=== PATIENT | female | born 1965 | race Caucasian/White ===

== ENCOUNTER 2019-07-24 14:18 | Outpatient (CLI) | payer MEDICARE, MEDICAID, SELFPAY ==
--- NOTE | 2019-07-24 14:33 | CT_ITS ---
WS: [id number] CT CHEST WITHOUT INTRAVENOUS CONTRAST HISTORY: SWELLING AND PAIN ON THE LEFT RIBS TECHNIQUE: Contiguous 5 mm axial imaging performed on the thorax. Coronal and sagittal reformats are submitted. All CT scans at [facility] use at least one of these dose optimization techniq ues: automated exposure control; mA and/or kV adjustment per patient size (includes targeted exams wh ere dose is matched to clinical indication); or iterative reconstruction. CONTRAST: None DLP: 839.39 mGycm COMPARISON: None available. Lungs and central airway: Hyperexpanded lungs with mild haziness and changes of severe chronic emphys trisha. Benign granuloma at the RIGHT lung base. Spiculated nodule in the posterior RIGHT apex measures 2.0 x 1.5 x 1.1 cm. Spiculated nodule with mild tethering towards the pleura. Pleura: Normal. No pleural effusion. Heart and pericardium: Mildly enlarged heart. Calcifications along the coronary arteries. Suspect is a stent in the LEFT anterior descending coronary artery. No pericardial effusion. Mediastinum and valerie: RIGHT paratracheal indeterminate lymph node measuring 1.[address] cm[address]ilum is [address] ill present. There are additional lymph nodes which are slightly enlarged. Vessels: Mild atherosclerosis aorta. No aneurysm. Pulmonary artery size is normal and equal to the ao rta. Chest wall and lower neck: No soft tissue masses. Upper abdomen: Prior cholecystectomy. Bilateral adrenal low-attenuation nodules. Adrenal nodules valeriy ure 1.4 cm in diameter. Nodules are low attenuation suggests an adenoma. Osseous structures: Mild straightening of the normal lumbar lordosis. Nondisplaced rib fractures invo lving the LEFT lateral seventh, eighth and ninth ribs. 1. Spiculated nodule RIGHT apex measures 2.0 x 1.5 x 1.1 cm. Highly suspicious for neoplasm. Recomme nd follow-up PET/CT imaging. 2. Severe chronic emphysema. 3. Mildly enlarged, indeterminate RIGHT paratracheal lymph node measures 1.3 cm. There are addition al smaller lymph nodes in the mediastinum and hilum. 4. Bilateral rounded adrenal masses. Favor a benign adenoma. 5. Nondisplaced LEFT lateral seventh, eighth and ninth rib fractures. 6. Prior cholecystectomy. CT/CT chest wo con [id number] IMPRESSION:
== END 2019-07-24 14:19 | disposition home or self-care (01) ==
LOC: RADWPI 14:27
PROVIDERS: PCP Nurse Practitioner Family; Referring Provider Nurse Practitioner Family; Visit Provider Nurse Practitioner Family
DX: J43.9 Emphysema, unspecified (principal); S22.42XA Multiple fractures of ribs, left side, initial encounter for closed fracture; X58.XXXA Exposure to other specified factors, initial encounter; R07.81 Pleurodynia; E27.9 Disorder of adrenal gland, unspecified; R91.8 Other nonspecific abnormal finding of lung field; Z90.49 Acquired absence of other specified parts of digestive tract
CPT/HCPCS: 71250

== ENCOUNTER → 2019-09-08 18:07 | Outpatient (BNVA) | payer MEDICARE, MEDICAID, SELFPAY | PROVIDERS: PCP Nurse Practitioner Family; Visit Provider Nurse Practitioner Family | DX: M79.672 Pain in left foot (principal) | CPT/HCPCS: 73630 ==

== ENCOUNTER 2019-10-24 10:46 | Outpatient (CLI) | payer MEDICARE, MEDICAID, SELFPAY | END 2019-10-24 10:47 | disposition home or self-care (01) | LOC: LAB 10:50 | PROVIDERS: PCP Nurse Practitioner Family; Visit Provider Internal Medicine Infectious Disease | DX: B39.4 Histoplasmosis capsulati, unspecified (principal) | CPT/HCPCS: 36415 ==

== ENCOUNTER 2021-03-06 17:59 | Emergency (ER) | payer MEDICARE, MEDICAID, SELFPAY ==
[2021-03-06 18:03] VITALS: BP 100/67; PULSE 94; RESP 18; TEMP 36.8; O2SAT 93; BMI 25.1
--- NOTE | 2021-03-06 18:20 | XRR_ITS ---
PROCEDURE INFORMATION: Exam: XR Lumbosacral Spine Exam date and time: 03/06/2021 6:20 PM Age: 55 years old Clinical indication: Injury or trauma; Fall; Blunt trauma (contusions or hematomas); Prior surgery; Surgery date: 6+ months; Surgery type: Back; Additional info: Fall, pain TECHNIQUE: Imaging protocol: XR of the lumbosacral spine. Views: 2 or 3 views. COMPARISON: No relevant prior studies available. FINDINGS: Bones/joints: Spinal alignment is normal. Vertebral body height is maintained. There is moderate lower lumbar degenerative disc disease. There is moderate multilevel facet spondylosis. The visible portion of the pelvis and sacrum is intact. No acute fracture. Visible portions of the ribs are intact. Soft tissues: Unremarkable. Vasculature: There is moderate aortic atherosclerotic disease. XR/XR lumbar spine 2-3V* [id number] IMPRESSION: 1. No acute fracture. 2. Moderate lower lumbar degenerative disc disease.
--- NOTE | 2021-03-06 18:21 | ED_ITS ---
HPI - Fall General: Chief Complaint: Fall Stated Complaint: LOW BACK PAIN S/P FALL Time Seen by Provider: 03/06/21 18:16 History of Present Illness: HPI Narrative: Patient was walking dog and dog pulled her down she landed on the flat of her back. Complains about pain upper lumbar area. History low back surgery. Patient arrived via ambulance. MD complaint: fall Onset (ago): hour(s) Fall from: standing Fall witnessed: no Place fall occurred: home Loss of consciousness: None Symptoms prior to fall: none Context: tripped/slipped Location of injury: back Severity: mild Severity scale (1-10): 4 Quality: aching Associated symptoms-after fall: Reports no associated symptoms; Denies abdominal pain, chest pain or headache(s) Review of Systems Const: Denies: fever(s), chills or body aches Eyes: Denies: change in vision or blurry vision ENMT: Denies: throat pain or nasal congestion Card: Denies: chest pain or dyspnea on exertion Resp: Denies: dyspnea, productive cough or non-productive cough GI: Denies: abdominal pain, nausea or vomiting Musc: Reports: back pain; Denies: extremity pain Skin/Breast: Denies: rash Neuro: Denies: headache(s) Psych: Denies: anxiety or depression Brandon/Lymph: Denies: easy bruising Physical Exam Const: COMMON NORMALS: no acute distress, average body habitus and patient oriented x3 HENMT: COMMON NORMALS: normocephalic HEAD & SCALP: normal to inspection and normocephalic FACE & SINUS: normal facial exam Eye: COMMON NORMALS: conjunctivae normal GENERAL EYE: appearance normal, both eyes and all related structures CONJUNCTIVA: Yes conjunctivae normal Neck/C-Spine: COMMON NORMALS: no JVD Chest: COMMONS NORMALS: normal inspection of the chest Resp: COMMON NORMALS: normal respiratory effort and clear to auscultation bilaterally AUSCULTATION: clear to auscultation bilaterally Cardio: COMMON NORMALS: no JVD, regular rate and regular rhythm RATE: regular rate RHYTHM: regular rhythm GI: COMMON NORMALS: Normal to inspection, nondistended, normoactive bowel sounds present Back/Pelvis: LUMBAR SPINE/LOWER BACK: Yes lumbar spinal tenderness Lumbar spinal tenderness location: L1 and L2 Extremity: COMMON NORMALS: normal to inspection and full ROM Neuro: COMMON NORMALS: patient oriented x3 Course 2 Vital Signs: Vital signs: Vital Signs Temperature 98.3 F 03/06/21 18:03 Pulse Rate 95 03/06/21 18:34 Respiratory Rate 18 03/06/21 18:34 Blood Pressure 102/69 03/06/21 18:34 Pulse Oximetry 92 03/06/21 18:34 MDM - Fall MDM Narrative: Medical decision making narrative: Patient refused Celebrex said she has real pain and that medicine is not real medicine for pain.. Radiology studies were negative. Patient said she cannot sit up due to pain. Pain medicine is off good patient declined. Patient says she has pain medicine at home. Patient set up in bed walked out saying we will give her pain medicine when clearly pain medicine was offered twice. Discharge Plan Discharge Patient Disposition: Home Clinical Impression: Lumbar contusion Qualifiers: Encounter type: initial encounter Qualified Code(s): S30.0XXA - Contusion of lower back and pelvis, initial encounter Condition: Stable Prescriptions: No Action No Known Home Medications RF: 0 Discharge Orders: Discharge ED (Routine); Ordered 03/06/21 Ordered By: Rodrigo Gan Referrals: Kasie Hasasn, BILL PEDDLER [Primary Care Provider] - Discharge Diet: Usual diet Discharge Activity: Increase activity as tolerated Patient Instructions: Contusion in Adults (ED) Activity Restrictions/Additional Instructions: Can take Tylenol or ibuprofen for discomfort. Apply ice to area as needed. Follow-up your family medical provider if no significant provement. Or you can return here. Coding Level of Care Code ED Nitroglycerin Nitrator Operator Batch for Suhail Fwjesus Exam Comprehensive
[2021-03-06 18:34] VITALS: BP 102/69; PULSE 95; RESP 18; O2SAT 92
--- NOTE | 2021-03-06 19:07 | PC.NURSE ---
patient is angry that she has had to wait for her xray. She has refused celebrex stating, that is not a pain medication and I am having real pain. I'm not putting that in my body . she has refused to allow her curtain to be closed to protect the privacy of herself and other patients and only allowed the door to be closed for covid infection control after REPRODUCER stated we would have to call security should she continue to refuse. She has been spewing vitriol concerning staff and [facility] that can be heard in the hallway by passjoseby, including derogatory name calling.
== END 2021-03-06 19:36 | disposition home or self-care (01) ==
PROVIDERS: Emergency Provider Nurse Practitioner Family; PCP Nurse Practitioner Family
DX: S30.0XXA Contusion of lower back and pelvis, initial encounter (principal); W01.0XXA Fall on same level from slipping, tripping and stumbling without subsequent striking against object, initial encounter; Y93.K1 Activity, walking an animal
CPT/HCPCS: 72100; 99282

== ENCOUNTER 2022-01-31 15:23 | Outpatient (CLI) | payer MEDICARE, MEDICAID, SELFPAY ==
--- NOTE | 2022-01-31 16:03 | XRR_ITS ---
PROCEDURE INFORMATION: Exam: XR Chest Exam date and time: 01/31/2022 4:06 PM Age: 56 years old Clinical indication: Shortness of breath; Additional info: SOB TECHNIQUE: Imaging protocol: Radiologic exam of the chest. Views: 2 views. COMPARISON: CT chest con [id number] 07/24/2019 2:38 PM FINDINGS: Lungs: Unremarkable. No consolidation. Pleural spaces: Unremarkable. No pleural effusion. No pneumothorax. Heart/Mediastinum: Unremarkable. No cardiomegaly. Bones/joints: Rotator cuff anchors noted in both humeral heads. Visualized osseous structures are intact. XR/XR chest 2V* [id number] IMPRESSION: No acute findings.
== END 2022-01-31 15:24 | disposition home or self-care (01) ==
LOC: RAD 15:33
PROVIDERS: PCP Family Medicine; Visit Provider Internal Medicine Hematology & Oncology
DX: R06.02 Shortness of breath (principal)
CPT/HCPCS: 71046

== ENCOUNTER 2022-06-20 15:14 | Emergency (ER) | payer MEDICARE, MEDICAID, SELFPAY ==
[2022-06-20 15:17] VITALS: BP 112/70; PULSE 104; RESP 18; TEMP 36.4; O2SAT 99
[2022-06-20 15:38] VITALS: BP 117/80; PULSE 92; RESP 20; O2SAT 94
[2022-06-20 15:51] LABS: Basophils # 0.1 10^3/uL (0.0-0.1); Basophils % 0.5 %; Eosinophils # 0.1 10^3/uL (0.0-0.8); Eosinophils % 0.6 %; Hematocrit 46.9 % (37.0-47.0); Hemoglobin 15.4 g/dL (11.5-15.3); Lymphocytes # 3.7 10^3/uL (0.8-4.8); Lymphocytes % 37.3 %; Mean Corpuscular HGB Conc 32.8 g/dL (30.0-36.0); Mean Corpuscular Hemoglobin 30.8 pg (28.0-34.0); Mean Corpuscular Volume 93.8 fl (81-99); Mean Platelet Volume 11.1 fL (7.4-10.4); Monocytes # 0.3 10^3/uL (0.2-0.9); Monocytes % 3.5 %; Neutrophils # 5.69 10^3/uL (1.8-7.7); Neutrophils % 57.9 %; Nucleated Red Blood Cells % 0 %; Platelet Count 263 10^3/cmm (130-400); White Blood Count 9.8 10^3/uL (4.0-10.0)
--- NOTE | 2022-06-20 15:55 | XRR_ITS ---
PROCEDURE INFORMATION: Exam: XR Chest Exam date and time: 06/20/2022 4:13 PM Age: 56 years old Clinical indication: Cough and dyspnea; Additional info: Dyspnea/cough TECHNIQUE: Imaging protocol: Radiologic exam of the chest. Views: 1 view. COMPARISON: CR XR chest 2V* [id number] 01/31/2022 4:06 PM FINDINGS: Lungs: Unremarkable. No consolidation. Pleural spaces: Unremarkable. No pleural effusion. No pneumothorax. Heart/Mediastinum: Unremarkable. No cardiomegaly. Bones/joints: Rotator cuff repair anchor noted in the right humeral head. Visualized osseous structures are intact. XR/XR chest 1V portable [id number] IMPRESSION: No acute findings.
--- NOTE | 2022-06-20 15:59 | W.ED.GENADLT ---
HPI - General Adult General: Chief complaint: General Medical Stated complaint: high BG Time Seen by Provider: 06/20/22 15:32 Source: patient Mode of arrival: ambulatory History of Present Illness: 56 yo female female presents with complaints of elevated blood sugar. Patient had previously been on metformin and 1 other medication she cannot recall the name of. She lost some weight and had stopped taking it after she had a lung resection for cancerous tumor. Recently her blood sugars have been elevated up into the 500 range. She restarted metformin but her blood sugar continues to be markedly elevated. She is quite anxious about it. She not had any recent fever sweats or chills or illness no flulike symptoms she is not currently on any prednisone. Onset (ago): minute(s) Radiation: non-radiation Relieving factors: none Exacerbating factors: eating Associated symptoms: Deny chest pain, confusion, cough, diaphoresis, decreased appetite, dyspnea, fevers/chills, headache(s), malaise, nausea, rash, palpitations, short of breath, syncope, vomiting or weakness Treatments prior to arrival: none Review of Systems Const: Reports: fatigue; Denies: fever(s), chills, malaise or diaphoresis ENMT: Denies: throat pain, ear or mastoid pain, nasal discharge or nasal congestion Card: Denies: chest pain, palpitations or syncope Resp: Denies: dyspnea GI: Denies: abdominal pain, nausea or vomiting : Denies: flank pain, difficulty voiding, dysuria, urinary frequency or urinary urgency Musc: Denies: neck pain or back pain Skin/Breast: Denies: rash or pruritus Neuro: Denies: headache(s) or confusion [facility] ED PFSH: Medical History (Updated 06/27/22 @ 06:19 by Tony Hewitt DO) Diabetes HTN (hypertension) Physical Exam Const: COMMON NORMALS: no acute distress GENERAL APPEARANCE: cooperative and comfortable ORIENTATION/CONSCIOUSNESS: Yes awake, Yes oriented to person, Yes oriented to place and Yes oriented to time HENMT: COMMON NORMALS: normocephalic, atraumatic, hearing grossly normal bilaterally, external ears normal, EAC's normal, TM's normal bilaterally, Normal nasal mucous membranes and turbinates present, moist oral mucous membranes and oropharynx normal HEAD & SCALP: normocephalic and atraumatic NOSE: Normal nasal mucous membranes and turbinates present EXTERNAL EAR: Yes external ears normal EXTERNAL AUDITORY CANAL: EAC's normal TYMPANIC MEMBRANE: TM's normal bilaterally Eye: COMMON NORMALS: Equal, round and reactive pupils present, EOMs intact bilaterally, conjunctivae normal and no scleral icterus CONJUNCTIVA: Yes conjunctivae normal PUPIL: Yes Equal, round and reactive pupils present Neck/C-Spine: COMMON NORMALS: full ROM, no lymphadenopathy, supple and no JVD Lymph: LYMPHATIC: no lymphadenopathy noted and no lymphedema noted Resp: COMMON NORMALS: normal respiratory effort, No retractions, No use of accessory muscles and clear to auscultation bilaterally AUSCULTATION: clear to auscultation bilaterally Cardio: COMMON NORMALS: no JVD, regular rate, regular rhythm and No murmurs present (Cardio) RATE: regular rate RHYTHM: regular rhythm GI: COMMON NORMALS: Soft to palpation and No hepatosplenomegaly present AUSCULTATION: Yes normoactive bowel sounds PALPATION: Yes Soft to palpation, No Tenderness to palpation present (GI), No Guarding due to palpation present (GI) and Yes No hepatosplenomegaly present Extremity: COMMON NORMALS: normal to inspection, capillary refill normal, no clubbing, cyanosis or edema, no calf tenderness and no pedal edema Neuro: SENSORIUM/ORIENTATION: Yes oriented to person, Yes oriented to place and Yes oriented to time Skin: COMMON NORMALS: no rashes or lesions noted GENERAL SKIN EXAM: no rashes or lesions noted Course Vital Signs: Vital signs: Vital Signs Temperature 97.5 F L 06/20/22 15:17 Pulse Rate 90 06/20/22 16:44 Respiratory Rate 18 06/20/22 16:44 Blood Pressure 117/80 06/20/22 15:38 Pulse Oximetry 93 06/20/22 16:44 Oxygen Delivery Me thod 06/20/22 16:44 MDM - General Adult Medical Decision Making Blood sugar elevated. Improved with fluids and dose of insulin. Discharge home restarted on metformin add Trulicity once weekly discussed with patient how the medication works follow-up with her primary care doctor within the week to reevaluate blood sugars and efficacy of medication regimen. Medical Records I reviewed the patient's medical records. Lab Data I reviewed the patient's lab results. 06/20/22 15:35 06/20/22 15:35 Radiology Impressions Chest X-Ray 06/20/22 15:55 IMPRESSION: No acute findings. Laboratory Results WBC 9.8 10^3/uL (4.0-10.0) 06/20/22 15:35 RBC 5.00 10^6/uL (4.1-5.3) 06/20/22 15:35 Hgb 15.4 g/dL (11.5-15.3) H 06/20/22 15:35 Hct 46.9 % (37.0-47.0) 06/20/22 15:35 MCV 93.8 fl (81-99) 06/20/22 15:35 MCH 30.8 pg (28.0-34.0) 06/20/22 15:35 MCHC 32.8 g/dL (30.0-36.0) 06/20/22 15:35 RDW 13.0 % (12.1-15.1) 06/20/22 15:35 Plt Count 263 10^3/cmm (130-400) 06/20/22 15:35 MPV 11.1 fL (7.4-10.4) H 06/20/22 15:35 Neut % (Auto) 57.9 % 06/20/22 15:35 Lymph % (Auto) 37.3 % 06/20/22 15:35 [place] % (Auto) 3.5 % 06/20/22 15:35 Eos % (Auto) 0.6 % 06/20/22 15:35 Baso % (Auto) 0.5 % 06/20/22 15:35 Neut # (Auto) 5.69 10^3/uL (1.8-7.7) 06/20/22 15:35 Lymph # (Auto) 3.7 10^3/uL (0.8-4.8) 06/20/22 15:35 [place] # (Auto) 0.3 10^3/uL (0.2-0.9) 06/20/22 15:35 Eos # (Auto) 0.1 10^3/uL (0.0-0.8) 06/20/22 15:35 Baso # (Auto) 0.1 10^3/uL (0.0-0.1) 06/20/22 15:35 Nucleated RBC % (auto) 0 % 06/20/22 15:35 Nucleated RBCs # 0.0 /100WBC 06/20/22 15:35 Specimen Type Arterial 06/20/22 16:07 Sample Site Brachial, right 06/20/22 16:07 ABG pH 7.38 (7.35-7.45) 06/20/22 16:07 ABG pCO2 35.1 mmHg (35-45) 06/20/22 16:07 ABG pO2 69.5 mmHg (80.0-100.0) L 06/20/22 16:07 ABG HCO3 20.9 mmol/L (22-26) L 06/20/22 16:07 ABG O2 Saturation 96.3 06/20/22 16:07 ABG Base Excess -3.6 mmol/L (-2.0-2.0) L 06/20/22 16:07 Michael Test N/a 06/20/22 16:07 A-a O2 Gradient 4.6 mmHg (5-10) L 06/20/22 16:07 Hematocrit 44.9 % (37-47) 06/20/22 16:07 Hgb O2 Saturation 85.7 % (95-100) L 06/20/22 16:07 Carboxyhemoglobin 10.1 %THgb (0.4-20.1) 06/20/22 16:07 Methemoglobin 0.8 % (0.4-1.5) 06/20/22 16:07 Total Hemoglobin 14.6 g/dL (12-16) 06/20/22 16:07 Sodium 134.0 mmol/L (131-143) 06/20/22 16:07 Potassium 3.5 mmol/L (3.5-5.0) 06/20/22 16:07 Glucose 345.0 mg/dL (70-115) H 06/20/22 16:07 Ionized Calcium 1.2 mmol/L (1.1-1.4) 06/20/22 16:07 O2 Delivery Device Room air 06/20/22 16:07 FiO2 21.0 % 06/20/22 16:07 Articulation Officer ID Gd 06/20/22 16:07 Sodium 131 mmol/L (136-145) L 06/20/22 15:35 Sodium Cancelled 06/20/22 15:35 Potassium 3.7 mmol/L (3.5-5.1) 06/20/22 15:35 Potassium Cancelled 06/20/22 15:35 Chloride 98 mmol/L (98-107) 06/20/22 15:35 Chloride Cancelled 06/20/22 15:35 Carbon Dioxide 20 mmol/L (22-29) L 06/20/22 15:35 Carbon Dioxide Cancelled 06/20/22 15:35 Anion Gap 16.7 (5-19) 06/20/22 15:35 Anion Gap Cancelled 06/20/22 15:35 BUN 10 mg/dL (6-20) 06/20/22 15:35 BUN Cancelled 06/20/22 15:35 Creatinine 0.5 mg/dL (0.5-0.9) 06/20/22 15:35 Creatinine Cancelled 06/20/22 15:35 GFR Calculation 126.7 mL/min (90-130) 06/20/22 15:35 GFR Calculation Cancelled 06/20/22 15:35 Glucose 362 mg/dL (65-115) H 06/20/22 15:35 Glucose Cancelled 06/20/22 15:35 POC Glucose 227 mg/dL (70-110) H 06/20/22 17:56 Calculated Osmolality 286 mOsm/kg (285-295) 06/20/22 15:35 Calculated Osmolality Cancelled 06/20/22 15:35 Calcium 9.3 mg/dL (8.5-10.5) 06/20/22 15:35 Calcium Cancelled 06/20/22 15:35 Total Bilirubin 0.2 mg/dL (0.15-1.2) 06/20/22 15:35 AST 10 U/L (0-32) 06/20/22 15:35 ALT 15 U/L (0-33) 06/20/22 15:35 Alkaline Phosphatase 124 U/L (35-105) H 06/20/22 15:35 Total Protein 6.9 g/dL (6.6-8.7) 06/20/22 15:35 Albumin 3.6 g/dL (3.5-5.2) 06/20/22 15:35 Globulin 3.3 g/dL (1.3-4.6) 06/20/22 15:35 Lipase Cancelled 06/20/22 15:35 Urine Color Yellow (Yellow) 06/20/22 16:41 Urine Appearance Clear (CLEAR) 06/20/22 16:41 Urine pH 7 (5-7) 06/20/22 16:41 Ur Specific [place] 1.005 (1.005-1.030) 06/20/22 16:41 Urine Protein Neg (Negative) 06/20/22 16:41 Urine Glucose (UA) 4+ (Normal) H 06/20/22 16:41 Urine Ketones Negative (Negative) 06/20/22 16:41 Urine Blood Neg (Negative) 06/20/22 16:41 Urine Nitrate Negative (Negative) 06/20/22 16:41 Urine Bilirubin Neg (Negative) 06/20/22 16:41 Urine Urobilinogen Norm mg/dL (Negative) 06/20/22 16:41 Ur Leukocyte Esterase Negative (Negative) 06/20/22 16:41 Serum Ketones Positive (Negative) H 06/20/22 15:35 Discharge Plan Discharge Patient Disposition: Home Clinical Impression: Diabetes Condition: Stable Prescriptions: New Trulicity 0.75 mg/0.5 mL pen injector 0.75 mg SUBCUT .qwk 30 Days Qty: 2 0RF No Action cyclobenzaprine 10 mg tablet 10 mg PO TID isosorbide mononitrate 30 mg tablet extended release 24 hr 30 mg PO QAM clopidogrel 75 mg tablet 75 mg PO QAM omeprazole 40 mg capsule,delayed release(DR/EC) 40 mg PO QAM oxycodone-acetaminophen 10-325 mg tablet 1 tab PO Q4H MDD 6 tabs PRN (Reason: Pain) sertraline 25 mg tablet See Rx Instructions .ROUTE .COMPLEX Rx Instructions: 12.5mg po daily for 3 days , then increase to 25mg po daily for 1 week then increase to 50mg po daily albuterol sulfate 90 mcg/actuation HFA aerosol inhaler 2 puff INHALATION Q6H PRN (Reason: Shortness Of Breath) topiramate 100 mg tablet 100 mg PO BID metformin 500 mg tablet extended release 24 hr 1,000 mg PO QAM diazepam 5 mg tablet 5 mg PO QID PRN (Reason: Anxiety) rosuvastatin 10 mg tablet 10 mg PO BEDTIME duloxetine 60 mg capsule,delayed release(DR/EC) 60 mg PO BID omega-3 acid ethyl esters 1 gram capsule 1 g PO QAM Mag 64 64 mg tablet,delayed release (DR/EC) See Rx Instructions .ROUTE .COMPLEX Rx Instructions: 64 mg (1 tab) po qam and 128mg (2 tabs)po at bedtime aspirin 325 mg Tablet 325 mg PO QAM Discharge Orders: Discharge ED (Routine); Ordered 06/20/22 Ordered By: Tony Hewitt Referrals: Jaden Mcarthur DO [Primary Care Provider] - Discharge Diet: Usual diet Discharge Activity: Resume usual activity Patient Instructions: Opioid Safety, Pain Management Activity Restrictions/Additional Instructions: You were seen today for elevated blood sugars. Blood sugar improved with fluids and insulin. Start Trulicity 0.75 mg once weekly injection. Continue your metformin 1000 mg daily. Follow-up with your primary care doctor within the week. Coding Level of Care Code ED Bookkeeping Assistant for Suhail Fwd Exam Comprehensive
[2022-06-20 16:11] LABS: Alanine Aminotransferase 15 U/L (0-33); Albumin Level 3.6 g/dL (3.5-5.2); Alkaline Phosphatase 124 U/L (35-105); Anion Gap 16.7 (5-19); Aspartate Amino Transferase 10 U/L (0-32); Blood Urea Nitrogen 10 mg/dL (6-20); Calcium 9.3 mg/dL (8.5-10.5); Carbon Dioxide 20 mmol/L (22-29); Chloride 98 mmol/L (98-107); Globulin 3.3 g/dL (1.3-4.6); Glomerular Filtration Rate 126.7 mL/min (90-130); Glucose 362 mg/dL (65-115); Osmolality Calculated 286 mOsm/kg (285-295); Potassium 3.7 mmol/L (3.5-5.1); Sodium 131 mmol/L (136-145); Total Bilirubin 0.2 mg/dL (0.15-1.2); Total Protein 6.9 g/dL (6.6-8.7)
[2022-06-20 16:25] LABS: ABG PCO2 35.1 mmHg (35-45); ABG PH Result 7.38 (7.35-7.45); Alveolar-Arterial Oxygen Gradi 4.6 mmHg (5-10); Arterial Blood Gas Hematocrit 44.9 % (37-47); Base Excess ABG -3.6 mmol/L (-2.0-2.0); Blood Gas Operator Identificat GD; Blood Gas Sample Site Brachial, right; Blood Gas Sample Type Arterial; Carboxyhemoglobin 10.1 %THgb (0.4-20.1); HCO3 ABG 20.9 mmol/L (22-26); HGB O2 Sat 85.7 % (95-100); Ionized Calcium Level - ABG 1.2 mmol/L (1.1-1.4); Methemoglobin 0.8 % (0.4-1.5); Oxygen Device ROOM AIR; Oxygen Saturation ABG 96.3; PO2 ABG 69.5 mmHg (80.0-100.0); Potassium Level - ABG 3.5 mmol/L (3.5-5.0); Total Hemoglobin 14.6 g/dL (12-16)
[2022-06-20 16:27] LABS: Glucose Point of Care 360 mg/dL (70-110)
[2022-06-20 16:35] LABS: Ketone (Acetest) Serum Positive (Negative)
[2022-06-20 16:44] VITALS: PULSE 90; RESP 18; O2SAT 93
[2022-06-20] MEDS: sodium chloride 0.9% 1,000 ML 999 ML IV (16:49)
[2022-06-20 16:50] LABS: Add Urine Microscopic? NO; Charge for UA Resulting for Rev
[2022-06-20] MEDS: insulin regular-human 100 units/1 mL 5 UNIT IVP (17:23)
[2022-06-20 18:00] LABS: Glucose Point of Care 227 mg/dL (70-110)
[2022-06-20 18:20] LABS: Bilirubin Urine Neg (Negative); Blood Urine Neg (Negative); Glucose Urine UA 4+ (Normal); Ketones Urine Negative (Negative); Leukocyte Esterase Urine Negative (Negative); Nitrate Urine Negative (Negative); Protein Urine Neg (Negative); Specific Gravity, Urine 1.005 (1.005-1.030); Urine Appearance Clear (CLEAR); Urine Color Yellow (Yellow); Urobilinogen Urine Norm (Negative); pH Urine 7 (5-7)
== END 2022-06-20 18:30 | disposition home or self-care (01) ==
PROVIDERS: Nurse Practitioner Family; Emergency Provider Family Medicine; PCP Family Medicine
DX: E11.65 Type 2 diabetes mellitus with hyperglycemia (principal)
CPT/HCPCS: 36416; 36600; 71045; 80051; 80053; 81003; 82009; 82330; 82805; 82962; 85025; 96361; 96374; 99285; J1815; J7030